=== PATIENT | male | born 1990 | race African-American/Black ===

== ENCOUNTER 2018-08-17 20:00 | Emergency (ER) | payer OTHER ==
[2018-08-17 20:51] VITALS: BP 153/102; PULSE 96; TEMP 98; BMI 25.6
--- NOTE | 2018-08-17 20:52 | PDOC ---
Rapid Medical Evaluation Medical Evaluation: Allergies Allergy/AdvReac Type Severity Reaction Status Date / Time No Known Allergies Allergy Verified 06/19/16 11:28 I have performed a brief in-person evaluation of this patient. The patient presents with a chief complaint of: R molar toothache x 1 month, went to dentist and is pending extraction of tooth in 4 days; pain getting worse yesterday Pertinent physical exam findings: +decay of R 3rd molar tooth I have ordered the following: Nothing The patient will proceed to the ED for further evaluation. 08/17/18 20:49
--- NOTE | 2018-08-17 23:08 | PDOC ---
History of Present Illness - General History Source: Patient Exam Limitations: No Limitations - History of Present Illness Initial Comments: 08/17/18 23:21 The patient is a 28 year old male, with no significant past medical history, who presents to the emergency department with, left lower tooth pain. As per patient, he has dentistry follow-up and is pending an extraction in 4 days, however, the pain became too unbearable prompting his arrival to the ED. He denies any worsening or alleviating factors. He denies any recent fevers, chills, or dizziness. He denies any recent nausea, vomit, diarrhea or constipation. He denies any recent chest pain or shortness of breath. He denies any recent dysuria, frequency, urgency or hematuria. Allergies: NKDA <Pawel De León - Last Filed: 08/17/18 23:21> <Myah Persaud - Last Filed: 08/17/18 23:25> - General Chief Complaint: Toothache Stated Complaint: TOOTHACHE/MOUTH PAIN Time Seen by Provider: 08/17/18 20:49 Past History <Pawel De León - Last Filed: 08/17/18 23:21> - Past Medical History COPD: No - Suicide/Smoking/Psychosocial Hx Smoking Status: Yes Smoking History: Never smoked Have you smoked in the past 12 months: No Number of Cigarettes Smoked Daily: 10 Information on smoking cessation initiated: No Hx Alcohol Use: No Drug/Substance Use Hx: No Substance Use Type: None <Myah Persaud - Last Filed: 08/17/18 23:25> - Past Medical History Allergies/Adverse Reactions: Allergies Allergy/AdvReac Type Severity Reaction Status Date / Time No Known Allergies Allergy Verified 08/17/18 20:53 Home Medications: Ambulatory Orders Amoxicillin - [Amoxicillin 875mg Tablet -] 875 mg PO BID #20 tab 01/18/18 Clindamycin [Cleocin -] 300 mg PO TID #21 capsule 08/17/18 Oxycodone HCl/Acetaminophen [Percocet 5-325 mg Tablet] 1 tab PO Q6H PRN #12 tablet MDD 4 08/17/18 Review of Systems - Review of Systems Able to Perform ROS?: Yes Comments:: 08/17/18 23:21 GENERAL/CONSTITUTIONAL: No fever or chills. No weakness. HEAD, EYES, EARS, NOSE AND THROAT: +Left lower tooth pain. No change in vision. No ear pain or discharge. No sore throat. GASTROINTESTINAL: No nausea, vomiting, diarrhea or constipation. GENITOURINARY: No dysuria, frequency, or change in urination. CARDIOVASCULAR: No chest pain or shortness of breath. RESPIRATORY: No cough, wheezing, or hemoptysis. MUSCULOSKELETAL: No joint or muscle swelling or pain. No neck or back pain. SKIN: No rash NEUROLOGIC: No headache, vertigo, loss of consciousness, or change in strength/ sensation. ENDOCRINE: No increased thirst. No abnormal weight change. HEMATOLOGIC/LYMPHATIC: No anemia, easy bleeding, or history of blood clots. ALLERGIC/IMMUNOLOGIC: No hives or skin allergy. All Other Systems: Reviewed and Negative <Pawel De León - Last Filed: 08/17/18 23:21> *Physical Exam - Vital Signs Last Vital Signs Temp Pulse Resp BP Pulse Ox 98.0 F 96 H 16 153/102 H 100 08/17/18 20:50 08/17/18 20:50 08/17/18 20:50 08/17/18 20:50 08/17/18 20:50 - Physical Exam Comments: 08/17/18 23:22 GENERAL: Awake, in no acute distress HEAD: No signs of trauma EYES: PERRLA, EOMI, sclera anicteric, conjunctiva clear, visual acuity grossly intact ENT: + Trismus present. Mild edema, tenderness, and erythema to the left lower molar region. No pointing or tongue swelling. No submandibular crepitus. NECK: Normal ROM, supple, no lymphadenopathy or JVD. LUNGS: Breath sounds equal, clear to auscultation bilaterally. No wheezes, and no crackles. Normal work of breathing. HEART: Regular rate and rhythm, normal S1 and S2, no murmurs, rubs or gallops ABDOMEN: Soft, nontender, normoactive bowel sounds. No guarding. Non- distended. : CHEST WALL: BACK: No midline tenderness. EXTREMITIES: Normal range of motion, no edema. No clubbing or cyanosis. No erythema, or tenderness NEUROLOGICAL: Alert, and fully oriented x4, Cranial nerves II through XII grossly intact. Normal speech, normal gait. DTRs 2/4 bilaterally. SKIN: Warm, Dry, normal turgor, no rashes or lesions noted. <Pawel De León - Last Filed: 08/17/18 23:21> - Vital Signs Last Vital Signs Temp Pulse Resp BP Pulse Ox 98.0 F 96 H 16 153/102 H 100 08/17/18 20:50 08/17/18 20:50 08/17/18 20:50 08/17/18 20:50 08/17/18 20:50 <Myah Persaud - Last Filed: 08/17/18 23:25> Moderate Sedation - Procedure Monitoring Vital Signs: Procedure Monitoring Vital Signs Temperature 98.0 F 08/17/18 20:50 Pulse Rate 96 H 08/17/18 20:50 Respiratory Rate 16 08/17/18 20:50 Blood Pressure 153/102 H 08/17/18 20:50 O2 Sat by Pulse Oximetry (%) 100 08/17/18 20:50 <Pawel De León - Last Filed: 08/17/18 23:21> - Procedure Monitoring Vital Signs: Procedure Monitoring Vital Signs Temperature 98.0 F 08/17/18 20:50 Pulse Rate 96 H 08/17/18 20:50 Respiratory Rate 16 08/17/18 20:50 Blood Pressure 153/102 H 08/17/18 20:50 O2 Sat by Pulse Oximetry (%) 100 08/17/18 20:50 <Myah Persaud - Last Filed: 08/17/18 23:25> Medical Decision Making - Medical Decision Making 08/17/18 23:24 28-year-old male with left lower rear toothache Patient is requesting antibiotics and some pain medication, he has an appointment set up with his dentist in the next few days Patient will be discharged on clindamycin as well as Percocet, 12 tabs Exam consistent with likely dental abscess There is no airway compromise <Myah Persaud - Last Filed: 08/17/18 23:25> *DC/Admit/Observation/Transfer - Attestations Scribe Attestion: 08/17/18 23:23 Documentation prepared by Pawel De León, acting as medical examiner for Myah Persaud DO. <Pawel De León - Last Filed: 08/17/18 23:21> - Discharge Dispostion Decision to Admit order: No - Attestations Physician Attestion: 08/17/18 23:19 I, Dr Myah Persaud, attest that this document has been prepared under my direction and personally reviewed by me in its entirety. I further attest, that it accurately reflects all work, procedures and medical decision making performed by me. <Myah Persaud - Last Filed: 08/17/18 23:25> Diagnosis at time of Disposition: Toothache - Discharge Dispostion Disposition: HOME Condition at time of disposition: Stable - Prescriptions Prescriptions: Clindamycin [Cleocin -] 300 mg PO TID #21 capsule Oxycodone HCl/Acetaminophen [Percocet 5-325 mg Tablet] 1 tab PO Q6H PRN #12 tablet MDD 4 PRN Reason: Pain - Patient Instructions Printed Discharge Instructions: DI for Tooth Abscess, DI for Dental Pain Additional Instructions: Follow-up with your dentist as discussed. He develop difficulty swallowing or fever return to the emergency department for repeat evaluation.
[2018-08-17] MEDS ORDERED: IBUPROFEN 400 MG TABLET (FP) PO ONE ×2 (23:25→23:51)
== END 2018-08-18 00:03 | disposition home or self-care (01) ==
LOC: JERFT 20:00 → JER 20:00
DX: K08.89 Other specified disorders of teeth and supporting structures (principal)
CPT/HCPCS: 99281-25

== ENCOUNTER 2018-12-20 23:43 | Emergency (ER) | payer OTHER ==
[2018-12-20 23:49] VITALS: BP 151/100; PULSE 72; TEMP 98.6; BMI 25.1
--- NOTE | 2018-12-21 02:06 | PDOC ---
History of Present Illness - General Chief Complaint: Toothache Stated Complaint: TOOTHACHE Time Seen by Provider: 12/21/18 02:03 - History of Present Illness Initial Comments: 12/21/18 02:06 28 yo M with h/o left lower molar pain. Patient reports "chipping," left molar tooth x 3 weeks [employer]. Reports chipping more of his tooth x 2 days ago. Denies foul taste, facial swelling, dysphagia, odynophagia. Pain with mastication. Pain not improved with "orajel." Does not f/w dentistry. Patient denies RUVALCABA, vision change, palpitations, cough, wheezing, orthopena, PND , leg swelling/pain, N/V, F,C, CP, SOB, urinary complaints, hematuria, BPR, abdominal pain, diarrhea, constipation, lightheadedness, weakness, sensory changes. PMHx: as noted above ROS: as noted SHx: Denies IVDA Allergies: NKDA Past History - Past Medical History Allergies/Adverse Reactions: Allergies Allergy/AdvReac Type Severity Reaction Status Date / Time No Known Allergies Allergy Verified 12/20/18 23:49 Home Medications: Ambulatory Orders Amoxicillin - [Amoxicillin 875mg Tablet -] 875 mg PO BID #20 tab 01/18/18 Clindamycin [Cleocin -] 300 mg PO TID #21 capsule 08/17/18 Oxycodone HCl/Acetaminophen [Percocet 5-325 mg Tablet] 1 tab PO Q6H PRN #12 tablet MDD 4 08/17/18 COPD: No - Suicide/Smoking/Psychosocial Hx Smoking Status: Yes Smoking History: Current some day smoker Have you smoked in the past 12 months: No Number of Cigarettes Smoked Daily: 1 Information on smoking cessation initiated: No Hx Alcohol Use: No Drug/Substance Use Hx: No Substance Use Type: None Review of Systems - Review of Systems Comments:: 12/21/18 02:06 GENERAL/CONSTITUTIONAL: No fever or chills. No weakness. HEAD, EYES, EARS, NOSE AND THROAT: + Left lower molar pain. No change in vision. No ear pain or discharge. No sore throat. CARDIOVASCULAR: No chest pain or shortness of breath RESPIRATORY: No cough, wheezing, or hemoptysis. GASTROINTESTINAL: No nausea, vomiting, diarrhea or constipation. GENITOURINARY: No dysuria, frequency, or change in urination. MUSCULOSKELETAL: No joint or muscle swelling or pain. No neck or back pain. SKIN: No rash NEUROLOGIC: No headache, vertigo, loss of consciousness, or change in strength/ sensation. ENDOCRINE: No increased thirst. No abnormal weight change HEMATOLOGIC/LYMPHATIC: No anemia, easy bleeding, or history of blood clots. ALLERGIC/IMMUNOLOGIC: No hives or skin allergy. *Physical Exam - Vital Signs Last Vital Signs Temp Pulse Resp BP Pulse Ox 98.6 F 72 18 151/100 98 12/20/18 23:45 12/20/18 23:45 12/20/18 23:45 12/20/18 23:45 12/20/18 23:45 - Physical Exam Comments: 12/21/18 02:06 GENERAL: Awake, alert, and fully oriented, in no acute distress HEAD: No signs of trauma, normocephalic, atraumatic EYES: PERRLA, EOMI, sclera anicteric, conjunctiva clear ENT: + Left lower 3rd molar fracture with enamel exposed. Multiple dental carries. Auricles normal inspection, hearing grossly normal, nares patent, oropharynx clear without exudates. Moist mucosa NECK: Normal ROM, supple, no lymphadenopathy, JVD, or masses LUNGS: No distress, speaks full sentences, clear to auscultation bilaterally HEART: Regular rate and rhythm, normal S1 and S2, no murmurs, rubs or gallops, peripheral pulses normal and equal bilaterally. ABDOMEN: Soft, nontender, normoactive bowel sounds. No guarding, no rebound. No masses EXTREMITIES : Normal inspection, Normal range of motion, no edema. No clubbing or cyanosis. NEUROLOGICAL: Cranial nerves II through XII grossly intact. Normal speech, normal gait, no focal sensorimotor deficits SKIN: Warm, Dry, normal turgor, no rashes or lesions noted Medical Decision Making - Medical Decision Making 12/21/18 02:35 28 yo M with h/o left lower molar pain, tooth fracture. Vitals wnl, AF, A&Ox3. + Left lower 3rd molar fracture with enamel exposed. Patient with tooth fracture , Banks class I enamel exposed. Airway intact, absent evidence aspiration. Absent pulp visualized. No evidence abscess, pulpitis, or other evidence infection. Provide pain control and reassess. Ed Course: 12/21/18 02:46 Pt. pain improved with Percocet Stable for d/c with return precautions Advised to f/u with dentistry *DC/Admit/Observation/Transfer Diagnosis at time of Disposition: Tooth fracture Qualifiers: Encounter type: initial encounter Fracture type: closed Qualified Code(s): S02.5XXA - Fracture of tooth (traumatic), initial encounter for closed fracture - Discharge Dispostion Condition at time of disposition: Stable Decision to Admit order: No - Referrals - Patient Instructions Printed Discharge Instructions: DI for Tooth Decay Additional Instructions: Please return to the emergency department with any new or worsening symptoms or concerns. Please follow up with your dentist and primary care physician within 72 hours. - Post Discharge Activity
--- NOTE | 2018-12-21 02:46 | PDOC ---
Attending Attestation - Resident Resident Name: Alexander Hartley - ED Attending Attestation I have performed the following: I have examined & evaluated the patient, The case was reviewed & discussed with the resident, I agree w/resident's findings & plan - HPI HPI: 12/21/18 02:50 28-year-old male with left lower molar pain after cracking her tooth. - Physicial Exam PE: 12/21/18 02:51 agree with resident exam - Medical Decision Making 12/21/18 02:51 28-year-old male with tooth pain secondary to trauma Will DC with short course of Percocet Patient to follow-up with dentistry
== END 2018-12-21 02:58 | disposition home or self-care (01) ==
LOC: JER 23:43
DX: S02.5XXA Fracture of tooth (traumatic), initial encounter for closed fracture (principal); X58.XXXA Exposure to other specified factors, initial encounter; Y93.9 Activity, unspecified; Y92.9 Unspecified place or not applicable
CPT/HCPCS: 99281-25